=== PATIENT | female | born 1930 | race African-American/Black ===

== ENCOUNTER → 2020-05-26 | Outpatient (CLI) | payer MEDICARE, MEDICAID ==
[~2020-05-26] MED LIST: ASPI-1497 MT; ASPI-986 PO; CLOP75TA4; FELODIPINE PO; INSLAN SQ; INSU100C6 SQ; LIP40 PO; LISI40TA4; MULT-1146 PO; RANI-655; VITA-261 PO
== END | disposition home or self-care (01) ==
LOC: LAB 09:01
PROVIDERS: ATTEND Specialist
DX: Z01.812 Encounter for preprocedural laboratory examination (principal); R05 Cough; Z20.828 Contact with and (suspected) exposure to other viral communicable diseases
CPT/HCPCS: C9803; U0003

== ENCOUNTER 2020-05-28 06:13 | Day surgery (SDC) | payer MEDICARE, MEDICAID ==
[~2020-05-28] VITALS: Ht 157.5 cm; Wt 64.9 kg
[~2020-05-28 06:13] MED LIST changes: -ASPI-1497 MT
[2020-05-28] MEDS ORDERED: LIDOCAINE HCL 1% 20ML VIAL (Pyxis) INJ ONE (07:24)
[2020-05-28] MEDS ORDERED: IOHEXOL-300 100 ML BOTTLE ONE (07:25)
[2020-05-28] MEDS ORDERED: ASPI-1497 MT (08:10)
[2020-05-28] MEDS ORDERED: MIDAZOLAM HCL 5 MG/5 ML VIAL ONE (08:46)
[2020-05-28] MEDS ORDERED: FENTANYL CITRATE/PF 50MCG/ML 5ML VIAL ONE (08:46)
[2020-05-28] MEDS ORDERED: IODIXANOL 320MG/ML 100 ML BOTTLE IV ONE (08:46)
[2020-05-28] MEDS ORDERED: ACETAMINOPHEN 325MG TABLET PO PRN (09:45)
[2020-05-28] MEDS ORDERED: ATROPINE SULFATE 1MG/10ML SYR IV PRN (09:45)
[2020-05-28] MEDS ORDERED: ONDANSETRON HCL 4MG/2ML INJ IV PRN (09:45)
[2020-05-28] MEDS ORDERED: CLONIDINE 0.1MG TABLET PO NR (11:52)
== END 2020-05-28 16:00 | disposition home or self-care (01) ==
LOC: CCL 06:13
PROVIDERS: ATTEND Specialist
DX: I73.9 Peripheral vascular disease, unspecified (principal); I11.9 Hypertensive heart disease without heart failure; I25.10 Atherosclerotic heart disease of native coronary artery without angina pectoris; E78.5 Hyperlipidemia, unspecified; E11.51 Type 2 diabetes mellitus with diabetic peripheral angiopathy without gangrene; Z79.4 Long term (current) use of insulin; Z79.82 Long term (current) use of aspirin; Z79.899 Other long term (current) drug therapy; Z95.1 Presence of aortocoronary bypass graft; Z98.890 Other specified postprocedural states; Z87.891 Personal history of nicotine dependence; Z72.89 Other problems related to lifestyle
CPT/HCPCS: 36247; 75710; 82962; C1725; C1760; C1769; C1893; J1644; J2250; J3010; J3490; Q9967; 36246; 99152; G0500

== ENCOUNTER 2020-09-29 10:03 | Inpatient (IN) | payer MEDICARE, MEDICAID ==
[~2020-09-29] VITALS: Ht 157.5 cm; Wt 50.9 kg
[~2020-09-29 10:03] MED LIST changes: +ASPI-1497 MT; -ASPI-986 PO; +CLOP-31; -CLOP75TA4; +LISI40TA13; -LISI40TA4
[2020-09-29 10:36] LABS: CHLORIDE 100 mEq/L (98-107)
[2020-09-29 10:37] LABS: BASOPHILS % 0.6 % (0.0-2.0); EOSINOPHILS % 1.3 % (0.0-5.0); HEMATOCRIT. 44.6 % (36.0-48.0); HEMOGLOBIN. 15.3 g/dL (12.0-16.0); LYMPHOCYTES % 45.3 % (20.0-50.0); MEAN CORPUSCULAR HEMOGLOBIN 32.8 pg (28.0-32.0); MEAN CORPUSCULAR VOLUME 95.4 fL (81.0-99.0); MEAN PLATELET VOLUME 9.5 fl (7.4-10.4); MONOCYTES % 8.5 % (2.0-8.0); NEUTROPHILS % 44.3 % (40.0-76.0); PLATELET 213 x1000/uL (130-400); RED BLOOD CELL COUNT 4.67 mill/uL (4.2-5.4); RED CELL DISTRIBUTION WIDTH 14.2 % (11.6-14.6)
[2020-09-29] MEDS ORDERED: MECLIZINE 25MG TABLET PO NR (11:15)
[2020-09-29] MEDS ORDERED: SODIUM CHLORIDE 0.9% 500 ML IV ONE (11:15)
[2020-09-29] MEDS ORDERED: NICARDIPINE 50 MG in SODIUM CHLORIDE 0.9% 230 ML IV PRN (12:00)
[2020-09-29] MEDS ORDERED: IOHEXOL-350 100 ML BOTTLE ONE (12:03)
[2020-09-29] MEDS ORDERED: ASPIRIN 325MG EC TABLET PO ONE (12:30)
[2020-09-29] MEDS ORDERED: LISINOPRIL 40MG TABLET PO SCH (14:15)
[2020-09-29] MEDS ORDERED: CLONIDINE 0.1MG TABLET PO PRN (14:15)
[2020-09-29] MEDS ORDERED: ACETAMINOPHEN 325MG TABLET PO PRN (14:15)
[2020-09-29] MEDS ORDERED: AMLODIPINE 10MG TABLET PO SCH (14:15)
[2020-09-29] MEDS ORDERED: ONDANSETRON HCL 4MG/2ML INJ IV PRN (14:15)
[2020-09-29] MEDS ORDERED: DEXTROSE 50% WATER 50ML SYRINGE IV PRN (20:15)
[2020-09-29] MEDS: BLOOD SUGAR DIAGNOSTIC STRIP TEST SCH (21:00)
[2020-09-30] VITALS (21 sets, daily range): BP systolic 104–165; BP diastolic 49–83
[2020-09-30 06:21] LABS: BASOPHILS % 0.3 % (0.0-2.0); EOSINOPHILS % 2.7 % (0.0-5.0); HEMATOCRIT. 40.9 % (36.0-48.0); HEMOGLOBIN. 13.5 g/dL (12.0-16.0); LYMPHOCYTES % 51.8 % (20.0-50.0); MEAN CORPUSCULAR HEMOGLOBIN 31.7 pg (28.0-32.0); MEAN CORPUSCULAR VOLUME 95.9 fL (81.0-99.0); MEAN PLATELET VOLUME 8.9 fl (7.4-10.4); MONOCYTES % 9.9 % (2.0-8.0); NEUTROPHILS % 35.3 % (40.0-76.0); PLATELET 187 x1000/uL (130-400); RED BLOOD CELL COUNT 4.27 mill/uL (4.2-5.4); RED CELL DISTRIBUTION WIDTH 14.1 % (11.6-14.6)
[2020-09-30 06:30] LABS: CHLORIDE 108 mEq/L (98-107)
[2020-09-30 06:38] LABS: LDL CHOLESTEROL 50 mg/dL (5-100)
[2020-09-30 06:40] LABS: HDL CHOLESTEROL 67 mg/dL (40-59)
[2020-09-30] MEDS: INSULIN LISPRO 100 UNITS/ML SUBCUT SCH ×2 (07:40→13:31)
[2020-09-30] MEDS: BLOOD SUGAR DIAGNOSTIC STRIP TEST SCH ×2 (07:40→12:38)
[2020-09-30] MEDS ORDERED: AMLODIPINE 10MG TABLET PO SCH (09:00)
[2020-09-30] MEDS ORDERED: LISINOPRIL 20MG TABLET PO SCH (09:00)
[2020-09-30] MEDS ORDERED: ASPIRIN 81MG TABLET PO SCH (09:00)
[2020-09-30] MEDS ORDERED: METOPROLOL TARTRATE 50MG TABLET PO SCH (09:00)
[2020-09-30] MEDS ORDERED: HYDRALAZINE HCL 50MG TABLET PO SCH ×2 (12:30→21:00)
[2020-09-30 15:12] LABS: CLARITY URINE CLEAR (CLEAR); COLOR URINE YELLOW (YELLOW); KETONES URINE NEGATIVE (NEGATIVE); LEUKOCYTE ESTERASE URINE NEGATIVE (NEGATIVE); NITRITE URINE NEGATIVE (NEGATIVE); OCCULT BLOOD URINE NEGATIVE (NEGATIVE); PROTEIN URINE NEGATIVE (NEGATIVE); SPECIFIC GRAVITY URINE 1.026 (1.005-1.030)
[2020-09-30] MEDS ORDERED: HYDR100T26 MT (15:52)
[2020-09-30] MEDS ORDERED: AMLO10TA80 PO (15:52)
[2020-09-30] MEDS ORDERED: ATORVASTATIN CALCIUM 40MG TABLET PO SCH (21:00)
== END 2020-09-30 17:30 | disposition home or self-care (01) | DRG 74 ==
LOC: ER 10:03 → CVICU 12:24 → ENRESERV 21:29
PROVIDERS: ADMIT Internal Medicine; ATTEND Internal Medicine
DX: G90.8 Other disorders of autonomic nervous system (principal); E87.1 Hypo-osmolality and hyponatremia; I16.0 Hypertensive urgency; I65.22 Occlusion and stenosis of left carotid artery; D16.9 Benign neoplasm of bone and articular cartilage, unspecified; E78.00 Pure hypercholesterolemia, unspecified; I25.10 Atherosclerotic heart disease of native coronary artery without angina pectoris; E78.5 Hyperlipidemia, unspecified; R74.01 Elevation of levels of liver transaminase levels; I11.0 Hypertensive heart disease with heart failure; I50.9 Heart failure, unspecified; E11.9 Type 2 diabetes mellitus without complications; Z79.82 Long term (current) use of aspirin; Z79.4 Long term (current) use of insulin; Z79.899 Other long term (current) drug therapy; Z82.49 Family history of ischemic heart disease and other diseases of the circulatory system; Z95.1 Presence of aortocoronary bypass graft; Z87.891 Personal history of nicotine dependence
CPT/HCPCS: 36415; 70496; 70498; 70551; 71045; 80048; 80053; 80061; 81003; 82962; 83036; 83880; 84443; 84484; 85025; 93005; 93306; 97162; 99291; J1815; J3490; J7050; J8597; Q9967

== ENCOUNTER 2021-05-04 01:07 | Inpatient (IN) | payer MEDICARE, MEDICAID ==
[~2021-05-04] VITALS: Ht 157.5 cm; Wt 59.0 kg
[~2021-05-04 01:07] MED LIST changes: +AMLO10TA80 PO; -FELODIPINE PO; +HYDR100T26 MT
[2021-05-04] MEDS ORDERED: PIPERACILLIN/TAZ 3.375G PREMIX 50 ML IV ONE (02:45)
[2021-05-04] MEDS ORDERED: ONDANSETRON HCL 4MG/2ML INJ IV ONE (02:45)
[2021-05-04] MEDS ORDERED: MORPHINE SULFATE 2 MG/ML CPJ (NOT FOR IM USE) IV ONE (02:45)
[2021-05-04] MEDS ORDERED: VANCOMYCIN 1 G PREMIX 200 ML IV ONE (02:45)
[2021-05-04 03:15] LABS: BASOPHILS % 1.1 % (0.0-2.0); EOSINOPHILS % 0.2 % (0.0-5.0); HEMATOCRIT. 38.2 % (36.0-48.0); LYMPHOCYTES % 29.4 % (20.0-50.0); MEAN CORPUSCULAR HEMOGLOBIN 32.2 pg (28.0-32.0); MEAN CORPUSCULAR VOLUME 94.3 fL (81.0-99.0); MEAN PLATELET VOLUME 8.6 fl (7.4-10.4); MONOCYTES % 9.8 % (2.0-8.0); NEUTROPHILS % 59.5 % (40.0-76.0); PLATELET 231 x1000/uL (130-400); RED BLOOD CELL COUNT 4.05 mill/uL (4.2-5.4); RED CELL DISTRIBUTION WIDTH 14.1 % (11.6-14.6)
[2021-05-04 03:18] LABS: CHLORIDE 97 mEq/L (98-107)
[2021-05-04 03:20] LABS: PROTHROMBIN TIME 10.3 sec (9.6-11.0)
[2021-05-04 04:22] LABS: CLARITY URINE CLEAR (CLEAR); COLOR URINE YELLOW (YELLOW); KETONES URINE NEGATIVE (NEGATIVE); LEUKOCYTE ESTERASE URINE NEGATIVE (NEGATIVE); NITRITE URINE NEGATIVE (NEGATIVE); OCCULT BLOOD URINE NEGATIVE (NEGATIVE); PROTEIN URINE 1+ (NEGATIVE); SPECIFIC GRAVITY URINE 1.009 (1.005-1.030); UROBILINOGEN URINE 0.2 E.U./dL (0.2-1.0)
[2021-05-04] MEDS ORDERED: DEXTROSE 50% WATER 50ML SYRINGE IV PRN ×2 (08:45)
[2021-05-04] MEDS ORDERED: ACETAMINOPHEN 325MG TABLET PO PRN (08:45)
[2021-05-04] MEDS ORDERED: ONDANSETRON HCL 4MG/2ML INJ IV PRN ×2 (08:45)
[2021-05-04] MEDS ORDERED: HYDROCODONE/ACETAMINOPHEN 5/325MG TABLET PO PRN (08:45)
[2021-05-04] MEDS ORDERED: BLOOD SUGAR DIAGNOSTIC STRIP TEST SCH (09:00)
[2021-05-04] MEDS ORDERED: NALOXONE HCL 0.4MG/ML VIAL IV PRN (09:15)
[2021-05-04 10:00] VITALS: BP_SYST 164; BP_DIAS 42; BP_DIAS 62
[2021-05-04] MEDS: INSULIN LISPRO 100 UNITS/ML SUBCUT SCH ×4 (11:00→21:30)
[2021-05-04] MEDS: BLOOD SUGAR DIAGNOSTIC STRIP TEST SCH ×4 (11:00→21:07)
[2021-05-04] MEDS ORDERED: INSULIN LISPRO 100 UNITS/ML SUBCUT SCH (13:20)
[2021-05-04] MEDS ORDERED: PIPERACILLIN/TAZOBACTAM 3.375 G in DEXTROSE 5% WATER 50 ML IV SCH (14:00)
[2021-05-04] MEDS: PIPERACILLIN/TAZOBACTAM 3.375 G in DEXTROSE 5% WATER 50 ML IV SCH ×2 (15:18→21:29)
[2021-05-04] MEDS: HYDROCODONE/ACETAMINOPHEN 5/325MG TABLET PO PRN (17:15)
[2021-05-04] MEDS: AMLODIPINE 10MG TABLET PO SCH (17:44)
[2021-05-04 20:00] VITALS: BP 173/56
[2021-05-04] MEDS ORDERED: ASPI-986 MT (20:32)
[2021-05-04] MEDS ORDERED: FELO10TA45 PO (20:37)
[2021-05-04] MEDS: ATORVASTATIN CALCIUM 40MG TABLET PO SCH (21:29)
[2021-05-04] MEDS: INSULIN GLARGINE UD 100 UNITS/ML SYR SUBCUT SCH (22:57)
[2021-05-04] MEDS: VANCOMYCIN 750 MG PREMIX 150 ML IV SCH (22:57)
[2021-05-05] VITALS: BP 193/65
[2021-05-05] MEDS: CLONIDINE 0.1MG TABLET PO PRN ×2 (01:02→08:24)
[2021-05-05] MEDS: HYDROCODONE/ACETAMINOPHEN 10/325MG TABLET PO PRN ×3 (01:03→22:58)
[2021-05-05 04:00] VITALS: BP 179/70
[2021-05-05] MEDS: PIPERACILLIN/TAZOBACTAM 3.375 G in DEXTROSE 5% WATER 50 ML IV SCH ×2 (06:20→13:50)
[2021-05-05] MEDS: INSULIN LISPRO 100 UNITS/ML SUBCUT SCH ×4 (06:26→21:00)
[2021-05-05] MEDS: BLOOD SUGAR DIAGNOSTIC STRIP TEST SCH ×4 (06:26→21:00)
[2021-05-05 08:00] VITALS: BP 192/74
[2021-05-05] MEDS: CLOPIDOGREL 75MG TABLET PO SCH (08:24)
[2021-05-05] MEDS: MULTIVITAMINS,THER W-MINERALS TABLET PO SCH (08:24)
[2021-05-05] MEDS: FAMOTIDINE 20MG TABLET PO SCH (08:25)
[2021-05-05] MEDS: ASPIRIN 325MG TABLET PO SCH (08:25)
[2021-05-05] MEDS: AMLODIPINE 10MG TABLET PO SCH (08:25)
[2021-05-05] MEDS: CHOLECALCIFEROL (D3) 1000 UNIT TABLET PO SCH (08:26)
[2021-05-05] MEDS ORDERED: RANITIDINE HCL PO SCH (09:00)
[2021-05-05] MEDS ORDERED: AMLODIPINE 10MG TABLET PO SCH (09:00)
[2021-05-05] MEDS ORDERED: HYDRALAZINE HCL 100MG TABLET PO SCH (10:30)
[2021-05-05 12:00] VITALS: BP 169/69
[2021-05-05 12:18] LABS: BASOPHILS % 1.2 % (0.0-2.0); EOSINOPHILS % 1.8 % (0.0-5.0); HEMATOCRIT. 37.9 % (36.0-48.0); HEMOGLOBIN. 12.8 g/dL (12.0-16.0); LYMPHOCYTES % 51.8 % (20.0-50.0); MEAN CORPUSCULAR HEMOGLOBIN 32.3 pg (28.0-32.0); MEAN CORPUSCULAR VOLUME 95.4 fL (81.0-99.0); MEAN PLATELET VOLUME 8.3 fl (7.4-10.4); MONOCYTES % 11.3 % (2.0-8.0); NEUTROPHILS % 33.9 % (40.0-76.0); PLATELET 233 x1000/uL (130-400); RED BLOOD CELL COUNT 3.97 mill/uL (4.2-5.4); RED CELL DISTRIBUTION WIDTH 14.1 % (11.6-14.6)
[2021-05-05 12:26] LABS: CHLORIDE 102 mEq/L (98-107)
[2021-05-05] MEDS: HYDRALAZINE HCL 100MG TABLET PO SCH ×2 (14:39→22:59)
[2021-05-05 16:00] VITALS: BP 147/52
[2021-05-05] MEDS ORDERED: LISINOPRIL 40MG TABLET PO SCH (19:00)
[2021-05-05 20:00] VITALS: BP 155/59
[2021-05-05] MEDS: ATORVASTATIN CALCIUM 40MG TABLET PO SCH (22:58)
[2021-05-06] VITALS: BP 176/65
[2021-05-06] MEDS: PIPERACILLIN/TAZOBACTAM 3.375 G in DEXTROSE 5% WATER 50 ML IV SCH ×4 (00:10→21:43)
[2021-05-06] MEDS: INSULIN GLARGINE UD 100 UNITS/ML SYR SUBCUT SCH ×2 (00:12→21:46)
[2021-05-06] MEDS: VANCOMYCIN 750 MG PREMIX 150 ML IV SCH (00:38)
[2021-05-06 04:00] VITALS: BP 103/58
[2021-05-06] MEDS: HYDRALAZINE HCL 100MG TABLET PO SCH ×3 (06:00→21:43)
[2021-05-06] MEDS: INSULIN LISPRO 100 UNITS/ML SUBCUT SCH ×4 (07:40→21:45)
[2021-05-06 07:45] LABS: CHLORIDE 99 mEq/L (98-107)
[2021-05-06] MEDS: BLOOD SUGAR DIAGNOSTIC STRIP TEST SCH ×4 (07:53→21:47)
[2021-05-06 08:00] VITALS: BP 197/68
[2021-05-06] MEDS: CLOPIDOGREL 75MG TABLET PO SCH (09:58)
[2021-05-06] MEDS: FAMOTIDINE 20MG TABLET PO SCH (09:58)
[2021-05-06] MEDS: MULTIVITAMINS,THER W-MINERALS TABLET PO SCH (09:58)
[2021-05-06] MEDS: CHOLECALCIFEROL (D3) 1000 UNIT TABLET PO SCH (09:58)
[2021-05-06] MEDS: ASPIRIN 325MG TABLET PO SCH (09:59)
[2021-05-06] MEDS: AMLODIPINE 10MG TABLET PO SCH (09:59)
[2021-05-06] MEDS: HYDROCODONE/ACETAMINOPHEN 10/325MG TABLET PO PRN (10:08)
[2021-05-06] MEDS: LISINOPRIL 40MG TABLET PO SCH (10:09)
[2021-05-06 12:00] VITALS: BP 171/62
[2021-05-06] MEDS ORDERED: IOHEXOL-350 100 ML BOTTLE ONE (14:52)
[2021-05-06 16:00] VITALS: BP 170/70
[2021-05-06 20:00] VITALS: BP 139/67
[2021-05-06] MEDS: ATORVASTATIN CALCIUM 40MG TABLET PO SCH (21:43)
[2021-05-07] VITALS: BP 172/62
[2021-05-07] MEDS: HYDROCODONE/ACETAMINOPHEN 5/325MG TABLET PO PRN ×3 (00:34→17:50)
[2021-05-07] MEDS: VANCOMYCIN 750 MG PREMIX 150 ML IV SCH ×2 (00:34→22:03)
[2021-05-07 04:00] VITALS: BP 167/68
[2021-05-07] MEDS: PIPERACILLIN/TAZOBACTAM 3.375 G in DEXTROSE 5% WATER 50 ML IV SCH ×3 (05:47→22:03)
[2021-05-07] MEDS: BLOOD SUGAR DIAGNOSTIC STRIP TEST SCH ×4 (05:59→21:00)
[2021-05-07] MEDS: HYDRALAZINE HCL 100MG TABLET PO SCH ×3 (06:00→22:03)
[2021-05-07] MEDS: INSULIN LISPRO 100 UNITS/ML SUBCUT SCH ×4 (06:27→21:00)
[2021-05-07 08:00] VITALS: BP 181/64
[2021-05-07] MEDS: CHOLECALCIFEROL (D3) 1000 UNIT TABLET PO SCH (09:00)
[2021-05-07] MEDS: CLOPIDOGREL 75MG TABLET PO SCH (09:00)
[2021-05-07] MEDS: ASPIRIN 325MG TABLET PO SCH (09:00)
[2021-05-07] MEDS: MULTIVITAMINS,THER W-MINERALS TABLET PO SCH (09:00)
[2021-05-07] MEDS: FAMOTIDINE 20MG TABLET PO SCH (09:00)
[2021-05-07] MEDS: CLONIDINE 0.1MG TABLET PO PRN (10:16)
[2021-05-07] MEDS: LISINOPRIL 40MG TABLET PO SCH (10:16)
[2021-05-07] MEDS: AMLODIPINE 10MG TABLET PO SCH (10:16)
[2021-05-07 12:00] VITALS: BP 155/66
[2021-05-07 16:00] VITALS: BP 155/54
[2021-05-07] MEDS ORDERED: LACTULOSE 20G/30ML UDC PO NR (18:00)
[2021-05-07] MEDS: DOCUSATE SODIUM 100MG CAPSULE PO SCH (18:21)
[2021-05-07 20:00] VITALS: BP 133/64
[2021-05-07] MEDS: ATORVASTATIN CALCIUM 40MG TABLET PO SCH (22:03)
[2021-05-07] MEDS: INSULIN GLARGINE UD 100 UNITS/ML SYR SUBCUT SCH (22:16)
[2021-05-08] VITALS: BP 150/66
[2021-05-08] MEDS: HYDROCODONE/ACETAMINOPHEN 5/325MG TABLET PO PRN (02:13)
[2021-05-08 04:00] VITALS: BP 169/63
[2021-05-08] MEDS: HYDRALAZINE HCL 100MG TABLET PO SCH ×3 (05:08→21:39)
[2021-05-08] MEDS: BLOOD SUGAR DIAGNOSTIC STRIP TEST SCH ×4 (05:08→21:39)
[2021-05-08] MEDS: PIPERACILLIN/TAZOBACTAM 3.375 G in DEXTROSE 5% WATER 50 ML IV SCH ×3 (05:08→21:38)
[2021-05-08] MEDS: INSULIN LISPRO 100 UNITS/ML SUBCUT SCH ×4 (06:11→21:00)
[2021-05-08] MEDS ORDERED: NA PHOS,M-B/NA PHOS,DI-BA ENEMA 118ML PR SCH (07:45)
[2021-05-08] MEDS: ASPIRIN 325MG TABLET PO SCH (09:57)
[2021-05-08] MEDS: CLOPIDOGREL 75MG TABLET PO SCH (09:58)
[2021-05-08] MEDS: DOCUSATE SODIUM 100MG CAPSULE PO SCH ×2 (09:58→17:00)
[2021-05-08] MEDS: CHOLECALCIFEROL (D3) 1000 UNIT TABLET PO SCH (09:58)
[2021-05-08] MEDS: FAMOTIDINE 20MG TABLET PO SCH (09:58)
[2021-05-08] MEDS: MULTIVITAMINS,THER W-MINERALS TABLET PO SCH (09:58)
[2021-05-08] MEDS: AMLODIPINE 10MG TABLET PO SCH (10:00)
[2021-05-08] MEDS: LISINOPRIL 40MG TABLET PO SCH (10:01)
[2021-05-08 12:00] VITALS: BP 166/62
[2021-05-08] MEDS: HYDROCODONE/ACETAMINOPHEN 10/325MG TABLET PO PRN (14:22)
[2021-05-08 16:00] VITALS: BP 160/58
[2021-05-08 20:00] VITALS: BP 149/50
[2021-05-08] MEDS: VANCOMYCIN 750 MG PREMIX 150 ML IV SCH (21:38)
[2021-05-08] MEDS: ATORVASTATIN CALCIUM 40MG TABLET PO SCH (21:39)
[2021-05-08] MEDS: INSULIN GLARGINE UD 100 UNITS/ML SYR SUBCUT SCH (21:47)
[2021-05-09] VITALS: BP 155/56
[2021-05-09 04:00] VITALS: BP 152/51
[2021-05-09] MEDS: PIPERACILLIN/TAZOBACTAM 3.375 G in DEXTROSE 5% WATER 50 ML IV SCH ×3 (04:51→22:02)
[2021-05-09] MEDS: HYDRALAZINE HCL 100MG TABLET PO SCH ×3 (04:52→22:03)
[2021-05-09] MEDS: HYDROCODONE/ACETAMINOPHEN 5/325MG TABLET PO PRN (04:52)
[2021-05-09] MEDS: BLOOD SUGAR DIAGNOSTIC STRIP TEST SCH ×4 (04:52→21:00)
[2021-05-09] MEDS: INSULIN LISPRO 100 UNITS/ML SUBCUT SCH ×4 (05:02→21:00)
[2021-05-09 08:00] VITALS: BP 163/56
[2021-05-09 08:43] LABS: CHLORIDE 101 mEq/L (98-107)
[2021-05-09] MEDS: CLOPIDOGREL 75MG TABLET PO SCH (08:47)
[2021-05-09] MEDS: CHOLECALCIFEROL (D3) 1000 UNIT TABLET PO SCH (08:47)
[2021-05-09] MEDS: ASPIRIN 325MG TABLET PO SCH (08:47)
[2021-05-09] MEDS: MULTIVITAMINS,THER W-MINERALS TABLET PO SCH (08:47)
[2021-05-09] MEDS: DOCUSATE SODIUM 100MG CAPSULE PO SCH ×2 (08:48→16:48)
[2021-05-09] MEDS: AMLODIPINE 10MG TABLET PO SCH (08:48)
[2021-05-09] MEDS: FAMOTIDINE 20MG TABLET PO SCH (08:48)
[2021-05-09] MEDS: LISINOPRIL 40MG TABLET PO SCH (08:48)
[2021-05-09] MEDS ORDERED: VANCOMYCIN 1 G PREMIX 200 ML IV SCH (11:30)
[2021-05-09 12:00] VITALS: BP 167/57
[2021-05-09] MEDS: CLONIDINE 0.1MG TABLET PO PRN (13:13)
[2021-05-09] MEDS: HYDROCODONE/ACETAMINOPHEN 10/325MG TABLET PO PRN (15:34)
[2021-05-09 16:00] VITALS: BP 146/56
[2021-05-09] MEDS: MORPHINE SULFATE 2 MG/ML CPJ (NOT FOR IM USE) IV PRN (17:37)
[2021-05-09 20:00] VITALS: BP 153/62
[2021-05-09] MEDS: SODIUM CHLORIDE 0.9% 1,000 ML IV SCH (22:03)
[2021-05-09] MEDS: ATORVASTATIN CALCIUM 40MG TABLET PO SCH (22:03)
[2021-05-09] MEDS: INSULIN GLARGINE UD 100 UNITS/ML SYR SUBCUT SCH (22:04)
[2021-05-10] VITALS: BP 150/60
[2021-05-10 04:00] VITALS: BP 168/57
[2021-05-10] MEDS: BLOOD SUGAR DIAGNOSTIC STRIP TEST SCH ×4 (05:53→21:36)
[2021-05-10] MEDS: INSULIN LISPRO 100 UNITS/ML SUBCUT SCH ×4 (05:53→21:00)
[2021-05-10] MEDS: HYDRALAZINE HCL 100MG TABLET PO SCH ×3 (05:54→21:40)
[2021-05-10] MEDS: SODIUM CHLORIDE 0.9% 1,000 ML IV SCH ×3 (05:54→17:19)
[2021-05-10] MEDS: MORPHINE SULFATE 2 MG/ML CPJ (NOT FOR IM USE) IV PRN (06:02)
[2021-05-10 08:00] VITALS: BP 172/56
[2021-05-10] MEDS: LISINOPRIL 40MG TABLET PO SCH (10:25)
[2021-05-10] MEDS: ASPIRIN 325MG TABLET PO SCH (10:25)
[2021-05-10] MEDS: FAMOTIDINE 20MG TABLET PO SCH (10:25)
[2021-05-10] MEDS: DOCUSATE SODIUM 100MG CAPSULE PO SCH ×2 (10:25→17:18)
[2021-05-10] MEDS: MULTIVITAMINS,THER W-MINERALS TABLET PO SCH (10:25)
[2021-05-10] MEDS: AMLODIPINE 10MG TABLET PO SCH (10:25)
[2021-05-10] MEDS: CLOPIDOGREL 75MG TABLET PO SCH (10:26)
[2021-05-10] MEDS: CHOLECALCIFEROL (D3) 1000 UNIT TABLET PO SCH (10:26)
[2021-05-10 12:00] VITALS: BP 158/61
[2021-05-10] MEDS ORDERED: GENTAMICIN SULF 40MG/ML 2ML VIAL ONE (14:29)
[2021-05-10] MEDS ORDERED: BUPIVACAINE HCL/PF 0.5% (5MG/ML) 10ML ONE (14:30)
[2021-05-10] MEDS ORDERED: POLYMYXIN B SULFATE 500000 UNITS/VIAL ONE (14:30)
[2021-05-10] MEDS ORDERED: LIDOCAINE HCL 1% 30ML VIAL (10MG/ML) ONE (14:30)
[2021-05-10] MEDS ORDERED: PROPOFOL 200MG/20ML VIAL IV ONE (14:43)
[2021-05-10] MEDS ORDERED: MIDAZOLAM HCL 2 MG/2 ML VIAL ONE (14:43)
[2021-05-10] MEDS ORDERED: HYDROMORPHONE HCL/PF 2MG/ML CPJ IV PRN (15:00)
[2021-05-10] MEDS ORDERED: MEPERIDINE HCL/PF 25MG/ML CPJ IV PRN (15:00)
[2021-05-10] MEDS ORDERED: MORPHINE SULFATE 2 MG/ML CPJ (NOT FOR IM USE) IV PRN (15:00)
[2021-05-10] MEDS ORDERED: ONDANSETRON HCL 4MG/2ML INJ IV PRN (15:00)
[2021-05-10 16:00] VITALS: BP 178/69
[2021-05-10] MEDS: CLONIDINE 0.1MG TABLET PO PRN (17:18)
[2021-05-10] MEDS ORDERED: AMOX-424 MT (17:59)
[2021-05-10] MEDS ORDERED: HYDR100T26 PO (17:59)
[2021-05-10 20:00] VITALS: BP 168/61
[2021-05-10] MEDS: ATORVASTATIN CALCIUM 40MG TABLET PO SCH (21:36)
[2021-05-10] MEDS: INSULIN GLARGINE UD 100 UNITS/ML SYR SUBCUT SCH ×2 (21:42→21:45)
[2021-05-11] VITALS (9 sets, daily range): BP systolic 116–188; BP diastolic 56–89
[2021-05-11] MEDS: MORPHINE SULFATE 2 MG/ML CPJ (NOT FOR IM USE) IV PRN ×3 (01:10→17:06)
[2021-05-11] MEDS: SODIUM CHLORIDE 0.9% 1,000 ML IV SCH ×5 (03:00→22:29)
[2021-05-11] MEDS: BLOOD SUGAR DIAGNOSTIC STRIP TEST SCH ×4 (05:35→20:45)
[2021-05-11] MEDS: HYDRALAZINE HCL 100MG TABLET PO SCH ×3 (05:46→21:06)
[2021-05-11] MEDS: INSULIN LISPRO 100 UNITS/ML SUBCUT SCH ×4 (05:47→21:12)
[2021-05-11] MEDS: ASPIRIN 325MG TABLET PO SCH (08:54)
[2021-05-11] MEDS: CLOPIDOGREL 75MG TABLET PO SCH (08:54)
[2021-05-11] MEDS: CHOLECALCIFEROL (D3) 1000 UNIT TABLET PO SCH (08:54)
[2021-05-11] MEDS: LISINOPRIL 40MG TABLET PO SCH (08:54)
[2021-05-11] MEDS: DOCUSATE SODIUM 100MG CAPSULE PO SCH ×2 (08:54→17:14)
[2021-05-11] MEDS: MULTIVITAMINS,THER W-MINERALS TABLET PO SCH (08:54)
[2021-05-11] MEDS: AMLODIPINE 10MG TABLET PO SCH (08:54)
[2021-05-11] MEDS: FAMOTIDINE 20MG TABLET PO SCH (08:56)
[2021-05-11] MEDS ORDERED: HYDR-4001 MT (18:03)
[2021-05-11] MEDS: CLONIDINE 0.1MG TABLET PO PRN (20:45)
[2021-05-11] MEDS: ACETAMINOPHEN 325MG TABLET PO PRN (21:05)
[2021-05-11] MEDS: ATORVASTATIN CALCIUM 40MG TABLET PO SCH (21:05)
[2021-05-11] MEDS: INSULIN GLARGINE UD 100 UNITS/ML SYR SUBCUT SCH (22:00)
[2021-05-12] VITALS (7 sets, daily range): BP systolic 148–186; BP diastolic 61–100
[2021-05-12] MEDS: MORPHINE SULFATE 2 MG/ML CPJ (NOT FOR IM USE) IV PRN ×2 (00:31→08:32)
[2021-05-12] MEDS: HYDRALAZINE HCL 100MG TABLET PO SCH (05:40)
[2021-05-12] MEDS: ACETAMINOPHEN 325MG TABLET PO PRN ×2 (05:40→10:04)
[2021-05-12] MEDS: SODIUM CHLORIDE 0.9% 1,000 ML IV SCH ×2 (05:51→08:31)
[2021-05-12] MEDS: BLOOD SUGAR DIAGNOSTIC STRIP TEST SCH (06:32)
[2021-05-12] MEDS: INSULIN LISPRO 100 UNITS/ML SUBCUT SCH (06:33)
[2021-05-12] MEDS: MULTIVITAMINS,THER W-MINERALS TABLET PO SCH (08:30)
[2021-05-12] MEDS: ASPIRIN 325MG TABLET PO SCH (08:30)
[2021-05-12] MEDS: LISINOPRIL 40MG TABLET PO SCH (08:30)
[2021-05-12] MEDS: FAMOTIDINE 20MG TABLET PO SCH (08:30)
[2021-05-12] MEDS: CLOPIDOGREL 75MG TABLET PO SCH (08:30)
[2021-05-12] MEDS: AMLODIPINE 10MG TABLET PO SCH (08:30)
[2021-05-12] MEDS: CHOLECALCIFEROL (D3) 1000 UNIT TABLET PO SCH (08:30)
[2021-05-12] MEDS: DOCUSATE SODIUM 100MG CAPSULE PO SCH (08:31)
[2021-05-12] MEDS: CLONIDINE 0.1MG TABLET PO PRN (10:05)
== END 2021-05-12 11:30 | disposition home health service (06) | DRG 617 ==
LOC: ER 01:07 → 6EST 05:54 → EDBEDREQ 06:02 → EDBEDREQTM 06:02 → ENRESERV 07:17 → ER 08:33 → 8WST 09:17
PROVIDERS: ADMIT Internal Medicine; ATTEND Internal Medicine
PROC: 0Y6V0Z0 Detachment at Right 4th Toe, Complete, Open Approach (ICD-10-PCS; principal; 2021-05-10)
DX: E11.69 Type 2 diabetes mellitus with other specified complication (principal); E11.52 Type 2 diabetes mellitus with diabetic peripheral angiopathy with gangrene; E87.1 Hypo-osmolality and hyponatremia; M86.8X7 Other osteomyelitis, ankle and foot; I96 Gangrene, not elsewhere classified; T82.858A Stenosis of other vascular prosthetic devices, implants and grafts, initial encounter; I16.0 Hypertensive urgency; E78.5 Hyperlipidemia, unspecified; E87.6 Hypokalemia; I10 Essential (primary) hypertension; F17.200 Nicotine dependence, unspecified, uncomplicated; L97.519 Non-pressure chronic ulcer of other part of right foot with unspecified severity; E11.621 Type 2 diabetes mellitus with foot ulcer; E78.00 Pure hypercholesterolemia, unspecified; Z20.822 Contact with and (suspected) exposure to COVID-19; E11.42 Type 2 diabetes mellitus with diabetic polyneuropathy; I25.10 Atherosclerotic heart disease of native coronary artery without angina pectoris; Y83.2 Surgical operation with anastomosis, bypass or graft as the cause of abnormal reaction of the patient, or of later complication, without mention of misadventure at the time of the procedure; Z95.1 Presence of aortocoronary bypass graft; Z89.421 Acquired absence of other right toe(s); Z82.49 Family history of ischemic heart disease and other diseases of the circulatory system; Z79.899 Other long term (current) drug therapy; Z79.82 Long term (current) use of aspirin; Z79.02 Long term (current) use of antithrombotics/antiplatelets; Y92.89 Other specified places as the place of occurrence of the external cause
CPT/HCPCS: 36415; 73630; 75635; 80048; 80053; 80202; 81003; 82962; 83036; 83605; 85025; 85651; 86140; 87426; 88304; 88305; 88311; 93923; 99285; J1580; J1815; J2250; J2270; J2405; J2543; J2704; J3370; J3490; J7030; J7060; Q9967

== ENCOUNTER 2021-07-01 16:37 | Inpatient (IN) | payer MEDICARE, MEDICAID ==
[~2021-07-01] VITALS: Ht 157.5 cm; Wt 50.8 kg
[~2021-07-01 16:37] MED LIST changes: +AMOX-424 MT; -ASPI-1497 MT; +ASPI-986 MT; +FELO10TA45 PO; -HYDR100T26 MT; +HYDR100T26 PO
[2021-07-01] MEDS ORDERED: PIPERACILLIN/TAZ 3.375G PREMIX 50 ML IV ONE (17:15)
[2021-07-01] MEDS ORDERED: VANCOMYCIN 1 G PREMIX 200 ML IV ONE (17:15)
[2021-07-01 17:37] LABS: CHLORIDE 97 mEq/L (98-107)
[2021-07-01 17:39] LABS: BASOPHILS % 0.8 % (0.0-2.0); HEMATOCRIT. 34.3 % (36.0-48.0); HEMOGLOBIN. 11.5 g/dL (12.0-16.0); LYMPHOCYTES % 25.5 % (20.0-50.0); MEAN CORPUSCULAR HEMOGLOBIN 30.9 pg (28.0-32.0); MEAN PLATELET VOLUME 7.6 fl (7.4-10.4); MONOCYTES % 11.5 % (2.0-8.0); NEUTROPHILS % 61.2 % (40.0-76.0); PLATELET 326 x1000/uL (130-400); RED BLOOD CELL COUNT 3.72 mill/uL (4.2-5.4); RED CELL DISTRIBUTION WIDTH 14.2 % (11.6-14.6)
[2021-07-01 17:48] LABS: PARTIAL THROMBOPLASTIN TIME 31.4 sec (23.4-31.0); PROTHROMBIN TIME 10.9 sec (9.6-11.0)
[2021-07-01] MEDS ORDERED: ONDANSETRON 4MG ODT PO ONE (21:00)
[2021-07-01] MEDS ORDERED: HYDROCODONE/ACETAMINOPHEN 5/325MG TABLET PO ONE (21:00)
[2021-07-01] MEDS ORDERED: CLONIDINE 0.1MG TABLET PO ONE (23:45)
[2021-07-02 00:03] LABS: CLARITY URINE CLEAR (CLEAR); COLOR URINE YELLOW (YELLOW); KETONES URINE NEGATIVE (NEGATIVE); LEUKOCYTE ESTERASE URINE TRACE (NEGATIVE); NITRITE URINE NEGATIVE (NEGATIVE); OCCULT BLOOD URINE NEGATIVE (NEGATIVE); PROTEIN URINE TRACE (NEGATIVE); SPECIFIC GRAVITY URINE 1.012 (1.005-1.030); UROBILINOGEN URINE 0.2 E.U./dL (0.2-1.0)
[2021-07-02] MEDS ORDERED: DEXT 5%/0.45% NACL 500ML 500 ML IV ONE (02:45)
[2021-07-02] MEDS ORDERED: NALOXONE HCL 0.4MG/ML VIAL IV PRN (03:15)
[2021-07-02] MEDS: HYDROCODONE/ACETAMINOPHEN 5/325MG TABLET PO PRN ×3 (03:35→20:23)
[2021-07-02 04:00] VITALS: BP 180/90
[2021-07-02] MEDS ORDERED: MORPHINE SULFATE 2 MG/ML CPJ (NOT FOR IM USE) IV NR (06:00)
[2021-07-02 08:00] VITALS: BP 191/70
[2021-07-02 08:08] VITALS: BP 163/52
[2021-07-02 09:33] LABS: HEMATOCRIT. 34.5 % (36.0-48.0); HEMOGLOBIN. 11.9 g/dL (12.0-16.0); MEAN CORPUSCULAR HEMOGLOBIN 31.6 pg (28.0-32.0); MEAN CORPUSCULAR VOLUME 91.6 fL (81.0-99.0); MEAN PLATELET VOLUME 7.4 fl (7.4-10.4); PLATELET 320 x1000/uL (130-400); RED BLOOD CELL COUNT 3.76 mill/uL (4.2-5.4); RED CELL DISTRIBUTION WIDTH 14.1 % (11.6-14.6)
[2021-07-02 09:43] LABS: CHLORIDE 100 mEq/L (98-107)
[2021-07-02] MEDS ORDERED: HYDROCODONE/ACETAMINOPHEN 5/325MG TABLET PO PRN (11:30)
[2021-07-02] MEDS ORDERED: DEXTROSE 50% WATER 50ML SYRINGE IV PRN (11:30)
[2021-07-02 12:00] VITALS: BP 195/74
[2021-07-02] MEDS: BLOOD SUGAR DIAGNOSTIC STRIP TEST SCH ×3 (12:52→21:34)
[2021-07-02] MEDS: INSULIN LISPRO 100 UNITS/ML SUBCUT SCH ×3 (12:53→21:34)
[2021-07-02] MEDS: ENOXAPARIN 30MG/0.3ML SYR SUBCUT SCH (15:19)
[2021-07-02] MEDS: CLONIDINE 0.1MG TABLET PO PRN ×2 (15:19→20:23)
[2021-07-02 16:00] VITALS: BP 198/74
[2021-07-02] MEDS: ACETAMINOPHEN 325MG TABLET PO PRN (16:02)
[2021-07-02 18:14] LABS: PLATELET ESTIMATE NORMAL
[2021-07-02 20:00] VITALS: BP 190/72
[2021-07-03] VITALS: BP 191/72
[2021-07-03] MEDS ORDERED: NIFEDIPINE XL 30MG TAB PO NR (02:00)
[2021-07-03] MEDS ORDERED: MORPHINE SULFATE 2 MG/ML CPJ (NOT FOR IM USE) IV PRN (02:15)
[2021-07-03] MEDS ORDERED: NIFEDIPINE XL 30MG TAB PO ONE (02:15)
[2021-07-03] MEDS: CLONIDINE 0.1MG TABLET PO PRN (02:24)
[2021-07-03] MEDS: MORPHINE SULFATE 2 MG/ML CPJ (NOT FOR IM USE) IV PRN ×4 (02:25→17:53)
[2021-07-03] MEDS ORDERED: HYDRALAZINE 20MG/ML VIAL IV PRN (06:45)
[2021-07-03] MEDS: HYDRALAZINE HCL 100MG TABLET PO SCH ×3 (07:00→21:27)
[2021-07-03] MEDS: METOPROLOL TARTRATE 50MG TABLET PO SCH ×2 (07:00→21:26)
[2021-07-03 07:22] LABS: BASOPHILS % 0.7 % (0.0-2.0); EOSINOPHILS % 1.7 % (0.0-5.0); HEMATOCRIT. 35.1 % (36.0-48.0); HEMOGLOBIN. 12.1 g/dL (12.0-16.0); LYMPHOCYTES % 32.5 % (20.0-50.0); MEAN CORPUSCULAR HEMOGLOBIN 31.5 pg (28.0-32.0); MEAN CORPUSCULAR VOLUME 91.5 fL (81.0-99.0); MEAN PLATELET VOLUME 7.6 fl (7.4-10.4); MONOCYTES % 14.2 % (2.0-8.0); NEUTROPHILS % 50.9 % (40.0-76.0); PLATELET 333 x1000/uL (130-400); RED BLOOD CELL COUNT 3.83 mill/uL (4.2-5.4); RED CELL DISTRIBUTION WIDTH 14.1 % (11.6-14.6)
[2021-07-03] MEDS: BLOOD SUGAR DIAGNOSTIC STRIP TEST SCH ×4 (07:23→21:27)
[2021-07-03] MEDS: INSULIN LISPRO 100 UNITS/ML SUBCUT SCH ×4 (07:50→21:00)
[2021-07-03 08:00] VITALS: BP 187/74
[2021-07-03] MEDS: HYDRALAZINE 10 MG in SODIUM CHLORIDE 0.9% 49.5 ML IV PRN (08:01)
[2021-07-03 08:20] LABS: CHLORIDE 100 mEq/L (98-107)
[2021-07-03] MEDS ORDERED: METOPROLOL TARTRATE 50MG TABLET PO SCH (09:00)
[2021-07-03] MEDS: MULTIVITAMINS,THER W-MINERALS TABLET PO SCH (09:00)
[2021-07-03] MEDS: CHOLECALCIFEROL (D3) 1000 UNIT TABLET PO SCH (09:00)
[2021-07-03] MEDS: ASPIRIN 325MG EC TABLET PO SCH (09:00)
[2021-07-03] MEDS: ACETAMINOPHEN 325MG TABLET PO PRN (11:35)
[2021-07-03] MEDS: LISINOPRIL 40MG TABLET PO SCH ×2 (11:36→21:27)
[2021-07-03] MEDS: AMLODIPINE 10MG TABLET PO SCH (11:36)
[2021-07-03 12:00] VITALS: BP 187/74
[2021-07-03] MEDS: ENOXAPARIN 30MG/0.3ML SYR SUBCUT SCH (13:32)
[2021-07-03 16:00] VITALS: BP 141/55
[2021-07-03 20:00] VITALS: BP 142/65
[2021-07-03] MEDS: ATORVASTATIN CALCIUM 40MG TABLET PO SCH (21:26)
[2021-07-03] MEDS: HYDROCODONE/ACETAMINOPHEN 5/325MG TABLET PO PRN (21:26)
[2021-07-04] VITALS (9 sets, daily range): BP systolic 142–182; BP diastolic 56–67
[2021-07-04] MEDS: CLONIDINE 0.1MG TABLET PO PRN ×2 (00:08→20:13)
[2021-07-04] MEDS: MORPHINE SULFATE 2 MG/ML CPJ (NOT FOR IM USE) IV PRN ×5 (00:08→21:55)
[2021-07-04] MEDS: HYDRALAZINE HCL 100MG TABLET PO SCH ×3 (05:30→21:05)
[2021-07-04] MEDS: BLOOD SUGAR DIAGNOSTIC STRIP TEST SCH ×4 (07:20→20:54)
[2021-07-04] MEDS: ASPIRIN 325MG EC TABLET PO SCH (09:11)
[2021-07-04] MEDS: LISINOPRIL 40MG TABLET PO SCH ×2 (09:12→20:12)
[2021-07-04] MEDS: CHOLECALCIFEROL (D3) 1000 UNIT TABLET PO SCH (09:12)
[2021-07-04] MEDS: MULTIVITAMINS,THER W-MINERALS TABLET PO SCH (09:12)
[2021-07-04] MEDS: METOPROLOL TARTRATE 50MG TABLET PO SCH ×2 (09:12→20:12)
[2021-07-04] MEDS: AMLODIPINE 10MG TABLET PO SCH (09:12)
[2021-07-04] MEDS: INSULIN LISPRO 100 UNITS/ML SUBCUT SCH ×4 (09:18→20:53)
[2021-07-04] MEDS ORDERED: LACTULOSE 20G/30ML UDC PO PRN (13:00)
[2021-07-04] MEDS: DOCUSATE SODIUM 250MG CAPSULE PO SCH (13:45)
[2021-07-04] MEDS: ENOXAPARIN 30MG/0.3ML SYR SUBCUT SCH (15:00)
[2021-07-04] MEDS: AMPICILLIN 1,000 MG in SODIUM CHLORIDE 0.9% 50 ML IV SCH (19:46)
[2021-07-04] MEDS: ATORVASTATIN CALCIUM 40MG TABLET PO SCH (20:11)
[2021-07-05] VITALS: BP 176/60
[2021-07-05] MEDS: AMPICILLIN 1,000 MG in SODIUM CHLORIDE 0.9% 50 ML IV SCH ×4 (00:31→19:33)
[2021-07-05] MEDS: HYDRALAZINE 10 MG in SODIUM CHLORIDE 0.9% 49.5 ML IV PRN ×3 (02:21→14:56)
[2021-07-05 04:00] VITALS: BP 153/55
[2021-07-05] MEDS: MORPHINE SULFATE 2 MG/ML CPJ (NOT FOR IM USE) IV PRN ×2 (05:14→17:25)
[2021-07-05] MEDS ORDERED: NA PHOS,M-B/NA PHOS,DI-BA ENEMA 118ML PR PRN (05:30)
[2021-07-05] MEDS: HYDRALAZINE HCL 100MG TABLET PO SCH ×3 (06:00→22:00)
[2021-07-05] MEDS: BLOOD SUGAR DIAGNOSTIC STRIP TEST SCH ×4 (07:44→21:08)
[2021-07-05] MEDS: INSULIN LISPRO 100 UNITS/ML SUBCUT SCH ×4 (07:50→21:18)
[2021-07-05 08:00] VITALS: BP 162/56
[2021-07-05] MEDS: MULTIVITAMINS,THER W-MINERALS TABLET PO SCH (09:00)
[2021-07-05] MEDS: LISINOPRIL 40MG TABLET PO SCH ×2 (09:00→21:00)
[2021-07-05] MEDS: CHOLECALCIFEROL (D3) 1000 UNIT TABLET PO SCH (09:00)
[2021-07-05] MEDS: ASPIRIN 325MG EC TABLET PO SCH (09:00)
[2021-07-05] MEDS: AMLODIPINE 10MG TABLET PO SCH (09:00)
[2021-07-05] MEDS: DOCUSATE SODIUM 250MG CAPSULE PO SCH (09:00)
[2021-07-05] MEDS: METOPROLOL TARTRATE 50MG TABLET PO SCH (09:00)
[2021-07-05] MEDS ORDERED: LIDOCAINE HCL 1% 20ML VIAL (Pyxis) INJ ONE (11:39)
[2021-07-05] MEDS ORDERED: IOHEXOL-300 100 ML BOTTLE ONE (11:39)
[2021-07-05] MEDS ORDERED: IODIXANOL 320MG/ML 100 ML BOTTLE IV ONE (11:39)
[2021-07-05] MEDS ORDERED: THROMBIN (BOVINE) 5000 UNITS/VIAL TOP ONE (12:53)
[2021-07-05] MEDS ORDERED: EPHEDRINE SULFATE 50MG/ML VIAL ONE (13:02)
[2021-07-05] MEDS ORDERED: DEXAMETHASONE 4MG/ML 1ML VIAL ONE (13:02)
[2021-07-05] MEDS ORDERED: METOCLOPRAMIDE HCL 10MG/2ML VIAL ONE (13:02)
[2021-07-05] MEDS ORDERED: ONDANSETRON HCL 4MG/2ML INJ ONE (13:02)
[2021-07-05] MEDS ORDERED: CEFAZOLIN SODIUM 1000MG/VIAL ONE (13:05)
[2021-07-05] MEDS ORDERED: HEPARIN 10,000 UNITS/ML VIAL ONE (13:36)
[2021-07-05] MEDS ORDERED: KETOROLAC 30MG/ML VIAL ONE (13:58)
[2021-07-05] MEDS: HYDROMORPHONE HCL/PF 2MG/ML CPJ IV PRN (14:26)
[2021-07-05] MEDS ORDERED: HYDROMORPHONE HCL/PF 2MG/ML CPJ ONE (14:31)
[2021-07-05] MEDS ORDERED: HYDRALAZINE 20MG/ML VIAL ONE (14:54)
[2021-07-05 16:00] VITALS: BP 135/59
[2021-07-05] MEDS: ENOXAPARIN 30MG/0.3ML SYR SUBCUT SCH (17:24)
[2021-07-05 20:00] VITALS: BP 120/55
[2021-07-05] MEDS: ATORVASTATIN CALCIUM 40MG TABLET PO SCH (20:50)
[2021-07-05] MEDS: METOPROLOL TARTRATE 100MG TABLET PO SCH (21:00)
[2021-07-05] MEDS: HYDROCODONE/ACETAMINOPHEN 5/325MG TABLET PO PRN (21:03)
[2021-07-06] VITALS: BP 117/51
[2021-07-06] MEDS: MORPHINE SULFATE 2 MG/ML CPJ (NOT FOR IM USE) IV PRN (01:41)
[2021-07-06] MEDS: AMPICILLIN 1,000 MG in SODIUM CHLORIDE 0.9% 50 ML IV SCH ×3 (01:45→11:47)
[2021-07-06 04:00] VITALS: BP 144/54
[2021-07-06] MEDS: HYDRALAZINE HCL 100MG TABLET PO SCH ×2 (06:30→16:22)
[2021-07-06] MEDS: BLOOD SUGAR DIAGNOSTIC STRIP TEST SCH ×2 (07:20→11:47)
[2021-07-06 08:00] VITALS: BP 133/54
[2021-07-06] MEDS: ASPIRIN 325MG EC TABLET PO SCH (08:38)
[2021-07-06] MEDS: MULTIVITAMINS,THER W-MINERALS TABLET PO SCH (08:38)
[2021-07-06] MEDS: DOCUSATE SODIUM 250MG CAPSULE PO SCH (08:38)
[2021-07-06] MEDS: HYDROMORPHONE HCL/PF 2MG/ML CPJ IV PRN (08:45)
[2021-07-06] MEDS: METOPROLOL TARTRATE 100MG TABLET PO SCH (08:46)
[2021-07-06] MEDS: AMLODIPINE 10MG TABLET PO SCH (08:46)
[2021-07-06] MEDS: CHOLECALCIFEROL (D3) 1000 UNIT TABLET PO SCH (08:46)
[2021-07-06] MEDS: INSULIN LISPRO 100 UNITS/ML SUBCUT SCH (09:00)
[2021-07-06] MEDS: LISINOPRIL 40MG TABLET PO SCH (09:24)
[2021-07-06] MEDS ORDERED: HYDR-4001 MT (10:24)
[2021-07-06 16:00] VITALS: BP 134/50
[2021-07-06] MEDS: ENOXAPARIN 30MG/0.3ML SYR SUBCUT SCH (16:22)
[2021-07-06] MEDS ORDERED: LINE600T14 MT (16:33)
[2021-07-06] MEDS ORDERED: CLOP-31 MT (16:33)
[2021-07-06 16:59] VITALS: BP 134/56
== END 2021-07-06 18:18 | disposition home health service (06) | DRG 253 ==
LOC: ER 16:37 → EDBEDREQTM 21:53 → EDBEDREQ 21:53 → ENRESERV 22:39 → 6EST 07-02 00:57
PROVIDERS: ADMIT Internal Medicine; ATTEND Internal Medicine
PROC: 04CK0ZZ Extirpation of Matter from Right Femoral Artery, Open Approach (ICD-10-PCS; principal; 2021-07-05)
PROC: 04CV0ZZ Extirpation of Matter from Right Foot Artery, Open Approach (ICD-10-PCS; 2021-07-05)
DX: I70.721 Atherosclerosis of other type of bypass graft(s) of the extremities with rest pain, right leg (principal); E11.52 Type 2 diabetes mellitus with diabetic peripheral angiopathy with gangrene; I96 Gangrene, not elsewhere classified; R78.81 Bacteremia; T87.81 Dehiscence of amputation stump; I25.10 Atherosclerotic heart disease of native coronary artery without angina pectoris; I10 Essential (primary) hypertension; E78.00 Pure hypercholesterolemia, unspecified; E11.42 Type 2 diabetes mellitus with diabetic polyneuropathy; Y83.5 Amputation of limb(s) as the cause of abnormal reaction of the patient, or of later complication, without mention of misadventure at the time of the procedure; E11.621 Type 2 diabetes mellitus with foot ulcer; Z20.822 Contact with and (suspected) exposure to COVID-19; E78.5 Hyperlipidemia, unspecified; L97.509 Non-pressure chronic ulcer of other part of unspecified foot with unspecified severity; Z79.02 Long term (current) use of antithrombotics/antiplatelets; Z95.1 Presence of aortocoronary bypass graft; Z79.4 Long term (current) use of insulin; Z82.49 Family history of ischemic heart disease and other diseases of the circulatory system; Y92.89 Other specified places as the place of occurrence of the external cause; Z79.2 Long term (current) use of antibiotics; Z79.82 Long term (current) use of aspirin; Z79.899 Other long term (current) drug therapy; B95.2 Enterococcus as the cause of diseases classified elsewhere
CPT/HCPCS: 36247; 36415; 71045; 73630; 75710; 80048; 80053; 81003; 82962; 83605; 84145; 85025; 87077; 87186; 87426; 88304; 88311; 93005; 93306; 93970; 99285; C1769; C1887; J0290; J0360; J0690; J1100; J1170; J1644; J1650; J1815; J1885; J2270; J2405; J2543; J2765; J3370; J3490; Q0162; Q9967